=== PATIENT | male | born 1970 | race Two or more races ===

== ENCOUNTER 2017-10-17 09:25 | Inpatient (IN) | payer MEDICAID, OTHER ==
[~2017-10-17] VITALS: Ht 170.2 cm; Wt 75.7 kg
[2017-10-17 10:59] LABS: Basophils # (auto) 0 uL; Basophils % (auto) 0.5 % (0.0-2.0); Eosinophils # (auto) 0 uL; Hematocrit 42.8 % (41.0-53.0); Hemoglobin 13.9 g/dL (13.5-17.5); Lymphocytes # (auto) 0.7 uL; Lymphocytes % (auto) 8.5 % (10.0-50.0); Mean Corpuscular Hgb Conc. 32.6 g/dL (32.0-36.0); Monocytes # (auto) 0.5 uL; Monocytes % (auto) 5.5 % (0.0-12.0); Neutrophils # (auto) 7.4 uL; Neutrophils % (auto) 85.5 % (37.0-80.0); Platelet Count (auto) 250 10^3/uL (140-450); Red Blood Cells 4.97 10^6/uL (4.5-5.90); Red Cell Distribution Width 15.7 % (11.8-14.3); White Blood Cell 8.7 10^3/uL (4.4-10.8)
[2017-10-17 11:21] LABS: Alanine Aminotransferase 33 U/L (16-61); Albumin 2.7 g/dL (3.4-5.0); Alkaline Phosphatase 157 U/L (45-117); Anion Gap 8 (5-15); Aspartate Aminotransferase 28 U/L (15-37); Bilirubin, Total 0.6 mg/dL (0.2-1.0); Blood Urea Nitrogen 20 mg/dL (7-18); Calcium 8.4 mg/dL (8.5-10.1); Carbon Dioxide 24 mmol/L (21-32); Chloride 104 mmol/L (98-107); GFR African American 92 mL/min; GFR Non-African American 76 mL/min; Glucose 355 mg/dL (74-106); Potassium 5.2 mmol/L (3.5-5.1); Sodium 136 mmol/L (136-145); Total Protein 6.8 g/dL (6.4-8.2)
[2017-10-17] MEDS ORDERED: FUROSEMIDE 40 MG/4 ML VIAL IV ONE (13:00)
[2017-10-17] MEDS ORDERED: NITROGLYCERIN 0.4 MG SL TAB SL ONE (13:00)
[2017-10-17] MEDS ORDERED: ASPirin 81 mg TAB PO ONE (13:00)
[2017-10-17] MEDS ORDERED: HYDROcodone-ACET 5/325MG TAB PO PRN (14:00)
[2017-10-17] MEDS ORDERED: DEXTROSE (50%) 50ML SYRG IV PRN (14:00)
[2017-10-17] MEDS ORDERED: ONDANSETRON HCL 4 MG/2 ML VIAL IV PRN (14:00)
[2017-10-17] MEDS ORDERED: MORPHINE SULFATE 4 MG/ML SYR/VIAL IV PRN ×2 (14:00)
[2017-10-17] MEDS ORDERED: NITROGLYCERIN 0.4 MG SL TAB SL PRN (14:00)
[2017-10-17] MEDS ORDERED: METOPROLOL TARTRATE 50 MG TAB PO ONE (14:00)
[2017-10-17] MEDS ORDERED: NITROGLYCERIN 0.2MG/HR TOPICAL PATCH TD ONE (14:00)
[2017-10-17] MEDS ORDERED: LABETALOL HCL 5 MG/ML ML 20ML VIAL IV PRN (14:15)
[2017-10-17 14:20] LABS: Urine Bacteria NONE SEEN /hpf (None Seen); Urine Blood TRACE /uL (Negative); Urine Hyaline Cast FEW /lpf (0 - 2); Urine WBC <1 /hpf (0 - 3)
[2017-10-17] MEDS ORDERED: hydrALAZINE HCL 25 MG TAB PO ONE (15:30)
[2017-10-17 16:05] LABS: Alcohol, Urine < 3.0 mg/dL (0-5); Amphetamine Screen, Urine NEGATIVE (NEGATIVE); Barbiturate Scree,Urine NEGATIVE (NEGATIVE); Benzodiazephine Screen, Urine NEGATIVE (NEGATIVE); Cannabinoid Screen, Urine NEGATIVE (NEGATIVE); Cocaine Screen, Urine NEGATIVE (NEGATIVE); Opiate Scree,Urine NEGATIVE (NEGATIVE); Phencyclidine Screen, Urine NEGATIVE (NEGATIVE)
[2017-10-17] MEDS: ACCU-CHEK COMFORT CURVE STRIP VI SCH ×2 (17:07→22:23)
[2017-10-17] MEDS: InsuLIN REG 1unit/0.01ml Soln (100units/ml) SC SCH ×2 (17:18→22:23)
[2017-10-17 21:37] VITALS: BP 138/99
[2017-10-17 21:50] VITALS: BP 138/99
[2017-10-17 22:00] VITALS: BP 138/99
[2017-10-17] MEDS ORDERED: METOPROLOL TARTRATE 50 MG TAB PO SCH (22:00)
[2017-10-17] MEDS: ATORVASTATIN 20 MG TAB PO SCH (22:21)
[2017-10-17] MEDS: hydrALAZINE HCL 25 MG TAB PO SCH (22:22)
[2017-10-17] MEDS: CARVEDILOL 3.125 MG TAB PO SCH (22:22)
[2017-10-17] MEDS: ISOSORBIDE DINITRATE 10 MG TAB PO SCH (22:23)
[2017-10-18 05:00] VITALS: BP 122/78
[2017-10-18] MEDS: InsuLIN REG 1unit/0.01ml Soln (100units/ml) SC SCH ×4 (05:56→22:21)
[2017-10-18] MEDS: ACCU-CHEK COMFORT CURVE STRIP VI SCH ×4 (05:56→22:21)
[2017-10-18 06:51] LABS: INR 1.05 (0.9-1.15); Partial Thromboplastin Time 25.9 sec (22.64-33.71); Prothrombin Time 11.4 sec (9.37-12.3)
[2017-10-18 06:58] LABS: Potassium 4.5 mmol/L (3.5-5.1)
[2017-10-18 08:36] VITALS: BP 126/81
[2017-10-18] MEDS ORDERED: NITROGLYCERIN 0.2MG/HR TOPICAL PATCH TD SCH (10:00)
[2017-10-18] MEDS: ASPirin 81 mg TAB PO SCH (11:28)
[2017-10-18] MEDS: FUROSEMIDE 40 MG/4 ML VIAL IV SCH (11:28)
[2017-10-18] MEDS: hydrALAZINE HCL 25 MG TAB PO SCH ×2 (11:28→22:20)
[2017-10-18] MEDS: ISOSORBIDE DINITRATE 10 MG TAB PO SCH ×2 (11:29→22:20)
[2017-10-18] MEDS: CARVEDILOL 3.125 MG TAB PO SCH ×2 (11:29→22:18)
[2017-10-18 12:22] VITALS: BP 133/94
[2017-10-18 17:00] VITALS: BP 141/91
[2017-10-18 22:00] VITALS: BP 135/95
[2017-10-18] MEDS: ATORVASTATIN 20 MG TAB PO SCH (22:17)
[2017-10-19 05:00] VITALS: BP 115/76
[2017-10-19 05:49] LABS: Basophils # (auto) 0 uL; Basophils % (auto) 0.3 % (0.0-2.0); Eosinophils # (auto) 0 uL; Hematocrit 37.3 % (41.0-53.0); Hemoglobin 12.7 g/dL (13.5-17.5); Lymphocytes # (auto) 0.9 uL; Lymphocytes % (auto) 9.9 % (10.0-50.0); Mean Corpuscular Hgb Conc. 34.2 g/dL (32.0-36.0); Mean Corpuscular Volume 84.9 fL (80.0-100.0); Monocytes # (auto) 0.7 uL; Monocytes % (auto) 7.5 % (0.0-12.0); Neutrophils # (auto) 7.6 uL; Neutrophils % (auto) 82.3 % (37.0-80.0); Nucleated Red Blood Cells % 0.1 %; Platelet Count (auto) 262 10^3/uL (140-450); Red Blood Cells 4.39 10^6/uL (4.5-5.90); Red Cell Distribution Width 15.6 % (11.8-14.3); White Blood Cell 9.2 10^3/uL (4.4-10.8)
[2017-10-19 06:07] LABS: Albumin 2.1 g/dL (3.4-5.0); BUN/Creatinine Ratio 19.8; Bilirubin, Total 0.8 mg/dL (0.2-1.0); Calcium 7.9 mg/dL (8.5-10.1); Magnesium 1.8 mg/dL (1.6-2.6); Potassium 3.9 mmol/L (3.5-5.1)
[2017-10-19] MEDS: ACCU-CHEK COMFORT CURVE STRIP VI SCH ×3 (06:36→17:00)
[2017-10-19] MEDS: InsuLIN REG 1unit/0.01ml Soln (100units/ml) SC SCH ×3 (06:37→17:00)
[2017-10-19 08:26] VITALS: BP 133/86
[2017-10-19] MEDS: FUROSEMIDE 40 MG/4 ML VIAL IV SCH (11:00)
[2017-10-19] MEDS: ASPirin 81 mg TAB PO SCH (11:00)
[2017-10-19] MEDS: hydrALAZINE HCL 25 MG TAB PO SCH (11:00)
[2017-10-19] MEDS: ISOSORBIDE DINITRATE 10 MG TAB PO SCH (11:01)
[2017-10-19] MEDS: CARVEDILOL 3.125 MG TAB PO SCH (11:01)
[2017-10-19 12:27] VITALS: BP 116/76
[2017-10-19] MEDS ORDERED: CAR3125T PO (14:32)
[2017-10-19] MEDS ORDERED: FURO40TA PO (14:32)
[2017-10-19] MEDS ORDERED: GLIP-115 PO (14:32)
[2017-10-19] MEDS ORDERED: ASPI-378 PO (14:32)
[2017-10-19] MEDS ORDERED: ISOS10TA2 PO (14:32)
[2017-10-19] MEDS ORDERED: HYDR25TA35 PO (14:32)
[2017-10-19] MEDS ORDERED: ATOR20TA50 PO (14:32)
[2017-10-19 16:13] VITALS: BP 123/63
[2017-10-19 16:21] VITALS: BP 123/63
[2017-10-21 14:25] LABS: Hepatitis B Surface Antibody Negative
[2017-10-21 14:44] LABS: Hepatitis B Surface Antigen Negative (Negative)
[2017-10-21 14:59] LABS: Hepatitis A Total Antibody Positive; Hepatitis B Core Total AB Negative
[2017-10-21 17:14] LABS: Hepatitis C Antibody Positive (Negative)
== END 2017-10-19 18:35 | disposition home or self-care (01) | DRG 292 ==
LOC: ER 09:25 → TELE 09:26 → TELE-WESTW 21:37
PROVIDERS: ADMIT Internal Medicine; ATTEND Internal Medicine
DX: I11.0 Hypertensive heart disease with heart failure (principal); I16.9 Hypertensive crisis, unspecified; E44.0 Moderate protein-calorie malnutrition; I42.0 Dilated cardiomyopathy; E11.65 Type 2 diabetes mellitus with hyperglycemia; E87.5 Hyperkalemia; I27.20 Pulmonary hypertension, unspecified; T43.625A Adverse effect of amphetamines, initial encounter; I50.43 Acute on chronic combined systolic (congestive) and diastolic (congestive) heart failure; F15.90 Other stimulant use, unspecified, uncomplicated; F17.210 Nicotine dependence, cigarettes, uncomplicated; Z68.26 Body mass index [BMI] 26.0-26.9, adult; Y92.89 Other specified places as the place of occurrence of the external cause; Z71.51 Drug abuse counseling and surveillance of drug abuser; Z71.6 Tobacco abuse counseling
CPT/HCPCS: 36415; 71046; 80048; 80053; 80061; 80307; 81001; 82962; 83036; 83735; 83880; 84484; 85025; 85610; 85730; 86704; 86706; 86708; 86803; 87340; 93005; 93306; 96374; 99291; J1815